=== PATIENT | male | born 1935 | race Caucasian/White ===

== ENCOUNTER 2021-02-23 12:52 | Inpatient (IN) | payer MEDICARE, OTHER ==
[~2021-02-23] VITALS: Ht 172.7 cm; Wt 63.0 kg
--- NOTE | 2021-02-23 12:57 | NUR ---
[id number] HOME C/O GENERALIZED WEAKNESS, NOT EATING, INCONTENENCE PER EMS, PT HAD HEAD INJURY FRM GLF YESTERDAY. TO ER BED 11, HOOKED TO MONITOR, VSS. CHANGED TO HOSP GOWN, WARM BLANKET PROVIDED. AWAITING MD SOSA
--- NOTE | 2021-02-23 13:08 | NUR ---
DR ROJAS AT BEDSIDE
[2021-02-23] MEDS ORDERED: QUET100T PO (13:43)
[2021-02-23] MEDS ORDERED: FINA5TAB11 PO (13:43)
[2021-02-23] MEDS ORDERED: ATOR20TA PO (13:43)
[2021-02-23] MEDS ORDERED: TAMS-12 PO (13:43)
[2021-02-23] MEDS ORDERED: METO25TA6 PO (13:43)
[2021-02-23] MEDS ORDERED: DOCU-141 PO (13:43)
[2021-02-23] MEDS ORDERED: APIX2.5T PO (13:43)
--- NOTE | 2021-02-23 14:00 | NUR ---
MOVE SHEET SUBMITTED AND CALLED FOR MS BED.
--- NOTE | 2021-02-23 14:01 | NUR ---
CALLED [facility] [phone] PT COVID (+) SINCE 02/19/2021
[2021-02-23 14:24] LABS: BASOPHILS # (AUTO) 0.1 K/uL (0.0-0.2); BASOPHILS % (AUTO) 0.7 % (0.0-2.0); EOSINOPHILS % (AUTO) 1.2 % (0.0-6.0); HEMATOCRIT 38 % (39-51); HEMOGLOBIN 12.4 g/dL (13.5-17.5); LYMPHOCYTES # (AUTO) 3.1 K/uL (0.8-4.8); LYMPHOCYTES % (AUTO) 24.5 % (20.0-44.0); MEAN CORPUSCULAR HGB CONC 33 g/dl (31.0-36.0); MEAN CORPUSCULAR VOLUME 98 fL (80-96); MONOCYTES % (AUTO) 8.2 % (2.0-12.0); NEUTROPHILS # (AUTO) 8.3 K/uL (1.8-8.9); NEUTROPHILS % (AUTO) 65.4 % (43.0-81.0); PLATELET COUNT (AUTO) 350 K/uL (150-450); RED BLOOD CELL COUNT(AUTO) 3.85 MIL/uL (4.5-6.0); WHITE BLOOD COUNT (AUTO) 12.6 K/uL (4.3-11.0)
[2021-02-23] MEDS ORDERED: IV NS 0.9% 1,000 ML IV ONE (16:00)
[2021-02-23 16:05] LABS: CALCIUM, SERUM 9.6 mg/dL (8.5-10.1); CARBON DIOXIDE 28 mmol/L (21-32); CHLORIDE 103 mmol/L (98-107); CREATININE 1.8 mg/dL (0.6-1.3); GLUCOSE 107 mg/dL (74-106); POTASSIUM 3.5 mmol/L (3.5-5.1); SODIUM SERUM 142 mmol/L (136-145); UREA NITROGEN, BLOOD 25 mg/dL (7-18)
[2021-02-23] MEDS ORDERED: IOHEXOL-300 100 ML VIAL IV ONE (16:06)
[2021-02-23 16:11] LABS: ALANINE AMINOTRANSFERASE 32 U/L (12-78); ALBUMIN 2.8 g/dL (3.4-5.0); ALKALINE PHOSPHATASE 112 U/L (46-116); ASPARTATE AMINOTRANSFERASE 23 U/L (15-37); BILIRUBIN,DIRECT 0.1 mg/dL (0.0-0.2); BILIRUBIN,TOTAL 0.3 mg/dL (0.2-1.0); TOTAL PROTEIN, SERUM 6.9 g/dL (6.4-8.2)
[2021-02-23] MEDS ORDERED: MAG HYDROX/AL HYDROX/SIMETH 30 ML UDC PO PRN (19:00)
[2021-02-23] MEDS ORDERED: MAGNESIUM HYDROXIDE 30 ML UDC PO PRN (19:00)
[2021-02-23] MEDS ORDERED: ONDANSETRON HCL/PF 4 MG/2 ML VIAL IVP PRN (19:00)
[2021-02-23] MEDS ORDERED: Z GUARD REMEDY 4 OZ OINT TP PRN (19:00)
[2021-02-23] MEDS ORDERED: HYDROCODONE/APAP 5/325MG TABLET PO PRN (19:00)
[2021-02-23] MEDS ORDERED: ACETAMINOPHEN 325 MG TABLET PO PRN (19:00)
[2021-02-23] MEDS ORDERED: ZOLPIDEM TARTRATE 5 MG TABLET PO PRN (19:00)
--- NOTE | 2021-02-23 19:45 | NUR ---
REPORT GIVEN TO KELLY LINDQUIST FOR ZEINA
--- NOTE | 2021-02-23 22:43 | NUR ---
bed [id number]
--- NOTE | 2021-02-23 23:16 | NUR ---
REPORT GIVEN TO LEXA CESAR.
--- NOTE | 2021-02-23 23:50 | NUR ---
CLINICAL PROJECT COORDINATOR ADMITTING NOTES: RECEIVED PATIENT VIA GURNEY FROM ER, PATIENT IS AWAKE, ALERT AND ORIENTED X2-3 PLACE COMFORTABLY IN BED, SKIN ASSESSMENT DONE, DOCUMENT PICTURE TAKEN, INVENTORY DONE, SIGNED, PATIENT APPEARS CALM DURING ASSESSMENT, NO COMPLAIN OF PAIN OR ANY DISCOMFORT, ON ROOM AIR SATURATING WELL, NO RESP DISTRESS WAS OBSERVED, PATIENT ON TELE MONITORING SR-91, PATIENT WAS ORIENTED TO PLACE, REMIND/INSTRUCT RESIDENT ON HOW TO USE CALL LIGHTS WHEN NEEDED ASSISTANCE, PATIENT IS FALL RISK BED WAS PLACED IN LOWEST POSITION CALL LIGHTS WITHIN REACH, KEPT CLEAN AND DRY, DUE MEDICATIONS GIVEN, WILL CONTINUE TO MONITOR.
[2021-02-24] VITALS: BP 141/67
[2021-02-24] MEDS: TAMSULOSIN 0.4 MG CAP.SR.24H PO SCH ×2 (00:03→21:32)
[2021-02-24] MEDS: QUETIAPINE FUMARATE 100 MG TABLET PO SCH ×2 (00:03→21:32)
[2021-02-24] MEDS: ATORVASTATIN 10 MG TABLET PO SCH ×2 (00:03→21:32)
[2021-02-24] MEDS: APIXABAN 2.5 MG TABLET PO SCH ×3 (00:04→17:14)
[2021-02-24] MEDS: IV 1/2NS 1000 ML 1,000 ML IV PRN (02:31)
--- NOTE | 2021-02-24 06:55 | NUR ---
GRADUATE INTERN CLOSING NOTES: PATIENT SLEEP IN BED COMFORTABLY, BED IN LOW POSITION, CALL LIGHTS WITHIN REACH, NO COMPLAIN OF PAIN AND DISCOMFORT AT THIS TIME, ,PATIENT ON TELE MONITORING SR -91 PATIENT., WITH IV LINE AT RAC#18 WITH ONGOING 0.45NSS@75ML PER HOUT INFUSING WELL, PATIENT ON ROOM AIR NO SOB WAS OBSERVED PATIENT KEPT CLEAN AND DRY, ALL NEEDS MET, ENDORSE TO INCOMING SHIFT.
[2021-02-24] MEDS: DOCUSATE SODIUM 100 MG CAPSULE PO SCH (08:03)
[2021-02-24] MEDS: FINASTERIDE (5 MG) 5 MG TABLET PO SCH (08:03)
[2021-02-24] MEDS: PANTOPRAZOLE 40 MG TABLET.DR PO SCH (08:03)
[2021-02-24] MEDS: METOPROLOL TARTRATE 25 MG TABLET PO SCH ×2 (08:04→17:15)
[2021-02-24 09:34] LABS: BASOPHILS # (AUTO) 0.1 K/uL (0.0-0.2); BASOPHILS % (AUTO) 0.9 % (0.0-2.0); EOSINOPHILS % (AUTO) 2.5 % (0.0-6.0); HEMATOCRIT 39 % (39-51); HEMOGLOBIN 12.4 g/dL (13.5-17.5); LYMPHOCYTES # (AUTO) 3.4 K/uL (0.8-4.8); LYMPHOCYTES % (AUTO) 28.1 % (20.0-44.0); MEAN CORPUSCULAR HGB CONC 32 g/dl (31.0-36.0); MEAN CORPUSCULAR VOLUME 99 fL (80-96); MONOCYTES # (AUTO) 1.2 K/uL (0.1-1.30); MONOCYTES % (AUTO) 9.6 % (2.0-12.0); NEUTROPHILS # (AUTO) 7.2 K/uL (1.8-8.9); NEUTROPHILS % (AUTO) 58.9 % (43.0-81.0); PLATELET COUNT (AUTO) 333 K/uL (150-450); RED BLOOD CELL COUNT(AUTO) 3.92 MIL/uL (4.5-6.0); WHITE BLOOD COUNT (AUTO) 12.2 K/uL (4.3-11.0)
[2021-02-24 10:19] LABS: CALCIUM, SERUM 9.4 mg/dL (8.5-10.1); CARBON DIOXIDE 25 mmol/L (21-32); CHLORIDE 107 mmol/L (98-107); CREATININE 1.5 mg/dL (0.6-1.3); GLUCOSE 77 mg/dL (74-106); MAGNESIUM 2.3 mg/dL (1.8-2.4); PHOSPHORUS 3.5 mg/dL (2.5-4.9); POTASSIUM 3.8 mmol/L (3.5-5.1); SODIUM SERUM 145 mmol/L (136-145); UREA NITROGEN, BLOOD 22 mg/dL (7-18)
--- NOTE | 2021-02-24 16:00 | NUR ---
MENTAL HEALTH NURSE NOTE PER DAUGHTER, NATASHA REQUEST, OBTAIN MEDICAL RECORDS FROM [facility] FOR RECENT HOSPITAL ADMISSION FOR PROSTATE SURGERY. FORM FAXED TO MEDICAL RECORDS AT [place] AT THIS TIME.
--- NOTE | 2021-02-24 18:49 | NUR ---
SHUTTLE FILLER CLOSING NOTES PT IS AWAKE IN BED, RESTING COMFORTABLY. NO S/SX OF DISTRESS NOTED. BREATHING IS EVEN AND UNLABORED. NO SOB.NO C/O PAIN. IV ACCESS RAC#18 PATENT AND INTACT WITH NSS 0.45% RUNNING AT 75MLS/HR. SAFETY MEASURES IN PLACE WITH BED LOCKED AT LOW POSITION AND SIDE RAILS UP X 2 CALL LIGHT IS WITHIN REACH. ALL NEEDS MET THROUGHOUT SHIFT. WILL ENDORSE CONTINUITY OF CARE TO ONCOMING SHIFT.
[2021-02-24 20:00] VITALS: BP 122/61
--- NOTE | 2021-02-25 | NUR ---
FIBERGLASS BONDING MACHINE TENDER NOTES PT REFUSED TO HAVE VS TAKEN. EXPLAINED TO PT IMPORTANCE OF VS IN HIS POC BUT PT STILL REFUSED. WILL CONTINUE TO MONITOR.
[2021-02-25 06:00] VITALS: BP 134/67
--- NOTE | 2021-02-25 06:49 | NUR ---
COMMUNITY SERVICES OFFICER NOTES AWAKE & RESPONSIVE. NOT IN ANY DISTRESS. NO SOB NOTED. DENIES ANY PAIN OR DISCOMFORT AT THIS TIME. ON TELE SR @ 88 WITH 1AVB/BBB WITH IVF INFUSING WELL. AM CARE DONE. MONITORED ACCORDINGLY. CALL LIGHT WITHIN REACH. BED IN LOWEST POSITION. SR UP X 3 WITH BED ALARM ON FOR SAFETY. WILL ENDORSE TO NEXT SHIFT.
--- NOTE | 2021-02-25 07:25 | NUR ---
SHANK PIECE TACKER OPENING NOTES PT IS ASLEEP IN BED, EASY TO AROUSE. A/O X 2-3. NO S/SX OF DISTRESS NOTED. BREATHING IS EVEN AND UNLABORED. NO SOB. IV ACCESS RAC#18 PATENT AND INTACT WITH NSS 0.45% RUNNING AT 75MLS/HR. SAFETY MEASURES IN PLACE WITH BED LOCKED AT LOW POSITION AND SIDE RAILS UP X 2 CALL LIGHT IS WITHIN REACH. WILL CONTINUE TO MONITOR PATIENT THROUGHOUT SHIFT.
[2021-02-25 08:00] VITALS: BP 157/69
[2021-02-25] MEDS: PANTOPRAZOLE 40 MG TABLET.DR PO SCH (08:19)
[2021-02-25] MEDS: DOCUSATE SODIUM 100 MG CAPSULE PO SCH (09:12)
[2021-02-25] MEDS: METOPROLOL TARTRATE 25 MG TABLET PO SCH ×2 (09:13→17:17)
[2021-02-25] MEDS: FINASTERIDE (5 MG) 5 MG TABLET PO SCH (09:13)
[2021-02-25] MEDS: APIXABAN 2.5 MG TABLET PO SCH ×2 (09:15→17:18)
[2021-02-25 12:00] VITALS: BP 126/64
[2021-02-25 16:00] VITALS: BP 114/56
--- NOTE | 2021-02-25 19:26 | NUR ---
MS RN CLOSING NOTES PT IS AWAKE IN BED, RESTING COMFORTABLY. NO S/SX OF DISTRESS NOTED. BREATHING IS EVEN AND UNLABORED. NO SOB.NO C/O PAIN. IV ACCESS RAC#18 PATENT AND INTACT. PT REFUSING IVF AT THIS TIME. SAFETY MEASURES IN PLACE WITH BED LOCKED AT LOW POSITION AND SIDE RAILS UP X 2 CALL LIGHT IS WITHIN REACH. ALL NEEDS MET THROUGHOUT SHIFT. WILL ENDORSE CONTINUITY OF CARE TO ONCOMING SHIFT.
[2021-02-25] MEDS: IV 1/2NS 1000 ML 1,000 ML IV PRN (19:31)
--- NOTE | 2021-02-25 19:48 | NUR ---
MS RN OPENING NOTES RECEIVED PT RESTING IN BED, EASY TO AROUSE. A/O X 2-3. NO SOB OR S/S OF RESPIRATORY DISTRESS NOTED. IV ACCESS RAC 18 GAUGE, PATENT AND INTACT REFUSING IVF AT THIS TIME. SAFETY PRECAUTIONS MAINTAINED. BED IN LOWEST LOCKED POSITION, HOB ELEVATED, SIDE RAILS UP X2, AND CALL LIGHT AND TABLE WITHIN REACH. WILL CONTINUE WITH PLAN OF CARE.
[2021-02-25 21:38] VITALS: BP 116/63
[2021-02-25] MEDS: ATORVASTATIN 10 MG TABLET PO SCH (21:52)
[2021-02-25] MEDS: TAMSULOSIN 0.4 MG CAP.SR.24H PO SCH (21:52)
[2021-02-25] MEDS: QUETIAPINE FUMARATE 100 MG TABLET PO SCH (21:53)
--- NOTE | 2021-02-25 22:13 | NUR ---
RN NOTE PT PULLED OUT IV ACCESS. PT STATED "IT WAS BOTHERING ME AND I DONT WANT ANOTHER ONE PUT IN". CHARGE NURSE MADE AWARE OF PT REFUSAL OF IV ACCESS. WILL TRY AGAIN LATER.
--- NOTE | 2021-02-26 06:36 | NUR ---
MS RN CLOSING NOTES PT RESTING IN BED, EASY TO AROUSE. A/O X 2-3. NO SOB OR S/S OF RESPIRATORY DISTRESS NOTED. IV ACCESS REMOVED BY PATIENT, STILL REFUSING IV ACCESS. WILL ENDORSE TO ONCOMING NURSE, CHARGE NURSE AWARE. ALL NEEDS MET AT THIS TIME. SAFETY PRECAUTIONS MAINTAINED AT ALL TIMES. BED IN LOWEST LOCKED POSITION, HOB ELEVATED, SIDE RAILS UP X2, AND CALL LIGHT AND TABLE WITHIN REACH. WILL ENDORSE TO ONCOMING NURSE FOR ZEINA.
--- NOTE | 2021-02-26 07:20 | NUR ---
DAIRY FARM OPERATOR OPENING NOTES PT IS ASLEEP IN BED, EASY TO AROUSE. A/O X 2-3. NO S/SX OF DISTRESS NOTED. BREATHING IS EVEN AND UNLABORED. NO SOB. PENO C/O PAIN AT THIS TIME. PER BI SPECIALIST NURSE, PT REMOVED IV ACCESS AND REFUSED REINSERTION.SAFETY MEASURES IN PLACE WITH BED LOCKED AT LOW POSITION AND SIDE RAILS UP X 2 CALL LIGHT IS WITHIN REACH. WILL CONTINUE TO MONITOR PATIENT THROUGHOUT SHIFT.
[2021-02-26 08:00] VITALS: BP 125/69
[2021-02-26] MEDS: PANTOPRAZOLE 40 MG TABLET.DR PO SCH (08:25)
[2021-02-26] MEDS: FINASTERIDE (5 MG) 5 MG TABLET PO SCH (09:11)
[2021-02-26] MEDS: DOCUSATE SODIUM 100 MG CAPSULE PO SCH (09:11)
[2021-02-26] MEDS: METOPROLOL TARTRATE 25 MG TABLET PO SCH ×2 (09:11→16:18)
[2021-02-26] MEDS: APIXABAN 2.5 MG TABLET PO SCH ×2 (09:12→16:17)
[2021-02-26 12:01] LABS: BASOPHILS # (AUTO) 0.1 K/uL (0.0-0.2); BASOPHILS % (AUTO) 0.5 % (0.0-2.0); EOSINOPHILS % (AUTO) 2.2 % (0.0-6.0); HEMATOCRIT 37 % (39-51); HEMOGLOBIN 12.3 g/dL (13.5-17.5); LYMPHOCYTES # (AUTO) 2.5 K/uL (0.8-4.8); LYMPHOCYTES % (AUTO) 23.1 % (20.0-44.0); MEAN CORPUSCULAR HGB CONC 33 g/dl (31.0-36.0); MEAN CORPUSCULAR VOLUME 98 fL (80-96); MONOCYTES # (AUTO) 1.2 K/uL (0.1-1.30); MONOCYTES % (AUTO) 11.3 % (2.0-12.0); NEUTROPHILS % (AUTO) 62.9 % (43.0-81.0); PLATELET COUNT (AUTO) 301 K/uL (150-450)
[2021-02-26 14:28] LABS: ALANINE AMINOTRANSFERASE 26 U/L (12-78); ALBUMIN 2.5 g/dL (3.4-5.0); ALKALINE PHOSPHATASE 101 U/L (46-116); ASPARTATE AMINOTRANSFERASE 20 U/L (15-37); BILIRUBIN,TOTAL 0.3 mg/dL (0.2-1.0); CALCIUM, SERUM 8.8 mg/dL (8.5-10.1); CARBON DIOXIDE 28 mmol/L (21-32); CHLORIDE 105 mmol/L (98-107); CREATININE 1.4 mg/dL (0.6-1.3); GLUCOSE 129 mg/dL (74-106); PHOSPHORUS 3.2 mg/dL (2.5-4.9); POTASSIUM 3.2 mmol/L (3.5-5.1); SODIUM SERUM 142 mmol/L (136-145); TOTAL PROTEIN, SERUM 6.3 g/dL (6.4-8.2); UREA NITROGEN, BLOOD 15 mg/dL (7-18)
--- NOTE | 2021-02-26 15:42 | NUR ---
RN NOTE DR. YESSICA FITZGERALD MADE AWARE OF POTASSIUM LEVEL 3.2 WITH NEW FOR POTASSIUM 40MEQ PO ONCE THEN, DISCHARGE; ORDERS READ BACK AND CARRIED OUT.
[2021-02-26 16:00] VITALS: BP 112/62
[2021-02-26] MEDS ORDERED: POTASSIUM CHLORIDE 20 MEQ TAB.PRT.SR PO ONE (16:00)
--- NOTE | 2021-02-26 19:30 | NUR ---
MS RN NOTE AM RN CALLED PATIENT'S DAUGHTER ASHLEIGH TO CLARIFY CODE STATUS, PER PATIENT'S DAUGHTER ASHLEIGH, PATIENT IS DNR.
--- NOTE | 2021-02-26 19:33 | NUR ---
MS RN CLOSING NOTES PT IS ASLEEP IN BED, EASY TO AROUSE. A/O X 2-3. NO S/SX OF DISTRESS NOTED. BREATHING IS EVEN AND UNLABORED. NO SOB. PENO C/O PAIN AT THIS TIME. PER CLAY PIGEON SETTER NURSE, PT REMOVED IV ACCESS AND REFUSED REINSERTION.SAFETY MEASURES IN PLACE WITH BED LOCKED AT LOW POSITION AND SIDE RAILS UP X 2 CALL LIGHT IS WITHIN REACH. WILL ENDORSE TO ONCOMING SHIFT.
--- NOTE | 2021-02-26 19:45 | NUR ---
MS RN OPENING NOTES RECEIVED PATIENT IS RESTING IN BED. A/O X 2-3 WITH PERIODS OF CONFUSION/FORGETFULNESS. NO S/SX OF DISTRESS NOTED. BREATHING IS EVEN AND UNLABORED. NO SOB. NO C/O PAIN AT THIS TIME. PER AM SHIFT NURSE, PT REMOVED IV ACCESS AND REFUSED REINSERTION, ALSO PATIENT REFUSED TO HAVE ANY IFV, MD WAS MADE AWARE. SAFETY MEASURES IN PLACE WITH BED LOCKED AT LOW POSITION AND SIDE RAILS UP X 2. BED ALARM ON. CALL LIGHT IS WITHIN REACH. WILL CONTINUE TO MONITOR PATIENT THROUGHOUT THE SHIFT.
[2021-02-26 20:00] VITALS: BP 114/65
[2021-02-26 20:10] VITALS: BP 114/65
[2021-02-26] MEDS: ATORVASTATIN 10 MG TABLET PO SCH (22:11)
[2021-02-26] MEDS: TAMSULOSIN 0.4 MG CAP.SR.24H PO SCH (22:11)
[2021-02-26] MEDS: QUETIAPINE FUMARATE 100 MG TABLET PO SCH (22:11)
--- NOTE | 2021-02-27 06:46 | NUR ---
MS RN CLOSING NOTES PT SLEPT WELL AT NIGHT. ASLEEP INTERMITTENTLY AT THIS TIME. A/O X 2-3 WITH PERIODS OF FORGETFULNESS. NO S/SX OF DISTRESS NOTED. BREATHING IS EVEN AND UNLABORED. NO SOB. NO C/O PAIN AT THIS TIME. NO IV ACCESS DUE TO PATIENT'S REFUSAL TO HAVE IV CATH REINSERTED. SAFETY MEASURES IN PLACE WITH BED LOCKED AT LOW POSITION AND SIDE RAILS UP X 2. BED ALARM IS ON. CALL LIGHT IS WITHIN REACH. WILL ENDORSE TO ONCOMING SHIFT FOR ZEINA.
[2021-02-27 08:00] VITALS: BP 102/57
[2021-02-27] MEDS: METOPROLOL TARTRATE 25 MG TABLET PO SCH ×2 (08:22→17:24)
[2021-02-27] MEDS: PANTOPRAZOLE 40 MG TABLET.DR PO SCH (08:38)
[2021-02-27] MEDS: FINASTERIDE (5 MG) 5 MG TABLET PO SCH (08:38)
[2021-02-27] MEDS: DOCUSATE SODIUM 100 MG CAPSULE PO SCH (08:38)
[2021-02-27] MEDS: APIXABAN 2.5 MG TABLET PO SCH ×2 (08:41→17:27)
--- NOTE | 2021-02-27 09:00 | NUR ---
m/s carton inspector: notes pt refused am care. no c/o pain or any discomfort. pt refused to be turned and repositioned. instructed to call for assistance. will continue to monitor.
--- NOTE | 2021-02-27 09:30 | NUR ---
m/s manager people: notes pt refused p.t. treatment per p.t. aide. will continue to monitor.
--- NOTE | 2021-02-27 12:00 | NUR ---
m/s family consumer science fcs teacher: notes lunch served with hob elevated. instructed to call for assistance. no distress noted. will continue to monitor.
--- NOTE | 2021-02-27 14:00 | NUR ---
m/s powder operator: notes resting comfortable in bed. pt refusing pm care despite encouragement from staff. instructed to call for assistance. will continue to monitor.
[2021-02-27 16:00] VITALS: BP 119/64
[2021-02-27] MEDS: ENSURE ENLIVE CHOC 237 ML CAN PO SCH (17:00)
--- NOTE | 2021-02-27 17:50 | NUR ---
m/s mine car dispatcher: notes era garvey (daughter) called and informed me that she agreed to [facility] snf placement for tomorrow. per daughter, she has spoken to albin (ryan) and will make arrangement for tomorrow. call transfer to pt.
--- NOTE | 2021-02-27 18:30 | NUR ---
m/s soyfreeze operator: notes pt consumes 50% of his meals today. no distress noted. needs attended. instructed to call for assistance. will continue to monitor.
--- NOTE | 2021-02-27 19:25 | NUR ---
m/s building cleaning supervisor: notes bedside report given to jacob (rn) for continuity of care.
[2021-02-27 20:00] VITALS: BP 117/60
[2021-02-27] MEDS: ATORVASTATIN 10 MG TABLET PO SCH (21:59)
[2021-02-27] MEDS: TAMSULOSIN 0.4 MG CAP.SR.24H PO SCH (21:59)
[2021-02-27] MEDS: QUETIAPINE FUMARATE 100 MG TABLET PO SCH (21:59)
--- NOTE | 2021-02-28 06:30 | NUR ---
CLOSING RN NOTES Patient overnight has been stable. Slept well. All needs anticipated by staff. No signs of distress. Aspiration and fall precautions in place.
--- NOTE | 2021-02-28 07:25 | NUR ---
MS RN OPENING NOTES RECEIVED PATIENT ON BED, AWAKE, NO SIGNS OF ACUTE DISTRESS NOTED. ON ROOM AIR TOLERATING WELL, NO SOB, BREATHING EVEN AND UNLABORED. PATIENT DOESN'T HAVE ANY IV ACCESS. SAFETY MEASURES IN PLACE. BED LOCKED AND IN LOWEST POSITION, SR UP X2, CALL LIGHT PLACED WITHIN EASY REACH. WILL CONTINUE TO MONITOR.
[2021-02-28] MEDS: PANTOPRAZOLE 40 MG TABLET.DR PO SCH (07:57)
[2021-02-28] MEDS: ENSURE ENLIVE CHOC 237 ML CAN PO SCH ×2 (07:58→16:59)
[2021-02-28 08:00] VITALS: BP 132/74
[2021-02-28] MEDS: FINASTERIDE (5 MG) 5 MG TABLET PO SCH (08:35)
[2021-02-28] MEDS: APIXABAN 2.5 MG TABLET PO SCH ×2 (08:37→16:27)
[2021-02-28] MEDS: METOPROLOL TARTRATE 25 MG TABLET PO SCH ×2 (08:41→16:25)
[2021-02-28] MEDS: DOCUSATE SODIUM 100 MG CAPSULE PO SCH (08:42)
[2021-02-28 16:00] VITALS: BP_SYST 108; BP_SYST 132; BP_DIAS 63; BP_DIAS 74
[2021-02-28 16:25] VITALS: BP 108/63
--- NOTE | 2021-02-28 18:20 | NUR ---
HOUSEKEEPING ATTENDANT NOTES PATIENT DISCHARGE TO [facility] IN STABLE CONDITION. VITAL SIGNS TAKEN, STABLE AND RECORDED. DENIES ANY PAIN AT THIS TIME. ALL BELONGINGS ACCOUNTED FOR, PATIENT SIGNED FORMS. PHOTOS OF SKIN ISSUES TAKEN, PLACED IN CHART. EXIT CARE FOLDER SENT WITH PATIENT. REPORT GIVEN TO LEXA DAN FROM [facility]. PATIENTS DAUGHTER ASHLEIGH AWARE OF DISCHARGE. PATIENT PICKED UP BY [facility] @1815. AWARE OF DISCHARGE.
== END 2021-02-28 18:40 | DRG 683 ==
LOC: ER 13:04 → TELE 22:50 → MED 02-25 16:29
PROVIDERS: ATTEND Internal Medicine
DX: N17.0 Acute kidney failure with tubular necrosis (principal); D68.59 Other primary thrombophilia; I95.1 Orthostatic hypotension; I48.91 Unspecified atrial fibrillation; F03.90 Unspecified dementia, unspecified severity, without behavioral disturbance, psychotic disturbance, mood disturbance, and anxiety; G89.29 Other chronic pain; N40.0 Benign prostatic hyperplasia without lower urinary tract symptoms; E87.6 Hypokalemia; R62.7 Adult failure to thrive; Z20.822 Contact with and (suspected) exposure to COVID-19; Z66 Do not resuscitate; Z79.01 Long term (current) use of anticoagulants; R29.6 Repeated falls; Z85.46 Personal history of malignant neoplasm of prostate; R10.9 Unspecified abdominal pain; Z86.73 Personal history of transient ischemic attack (TIA), and cerebral infarction without residual deficits; I12.9 Hypertensive chronic kidney disease with stage 1 through stage 4 chronic kidney disease, or unspecified chronic kidney disease; N18.9 Chronic kidney disease, unspecified; Z90.81 Acquired absence of spleen
CPT/HCPCS: 36415; 70450-TC; 71250-TC; 72125-TC; 80048-TC; 80053-TC; 80076-TC; 83735-TC; 84100-TC; 85025-TC; 85730-TC; 86850-TC; 87081-TC; 92526; 92611-TC; 93307-TC; 97112-TC; 97530-TC; C9803; G0378; J3490; J7030; Q9967